=== PATIENT | female | born 1945 | race Caucasian/White ===

== ENCOUNTER 2021-09-13 10:40 | Emergency (ER) | payer MEDICARE | END 2021-09-13 12:35 | disposition home or self-care (01) | LOC: JP.ED 10:40 | DX: R04.0 Epistaxis (principal); F17.210 Nicotine dependence, cigarettes, uncomplicated; Z88.0 Allergy status to penicillin; Z88.2 Allergy status to sulfonamides; Z79.82 Long term (current) use of aspirin | CPT/HCPCS: 30903; 99283 ==